=== PATIENT | female | born 1975 | race Native Hawaiian/Other Pacific Islander ===

== ENCOUNTER 2022-05-12 23:07 | Emergency (ER) | payer OTHER ==
[~2022-05-12] VITALS: Ht 160 cm; Wt 68.0 kg
[2022-05-13 00:10] VITALS: BP 152/90; TEMP 98.1
== END 2022-05-13 00:10 | disposition home or self-care (01) ==
LOC: ED 23:07
DX: G89.18 Other acute postprocedural pain (principal); M79.601 Pain in right arm
CPT/HCPCS: 96372; 99282; J1885